=== PATIENT | female | born 1990 | race Caucasian/White ===

== ENCOUNTER 2019-07-19 23:36 | Emergency (ER) | payer BC ==
[~2019-07-19] VITALS: Ht 160 cm; Wt 95.7 kg
--- NOTE | 2019-07-20 00:09 | NUR ---
Dr. Whitaker at bedside for MSE.
[2019-07-20] MEDS ORDERED: SULFAMETH/TRIMETH 800/160 MG TABLET ONE (00:14)
[2019-07-20] MEDS ORDERED: HYDROCODONE/APAP 10-325 MG TABLET ONE (00:14)
[2019-07-20] MEDS ORDERED: HYDROCODONE/APAP 10-325 MG TABLET PO ONE (00:15)
[2019-07-20] MEDS ORDERED: SULFAMETH/TRIMETH 800/160 MG TABLET PO ONE (00:15)
--- NOTE | 2019-07-20 00:23 | NUR ---
Patient discharged to home in stable conditon. Written and verbal after care instructions given. Patient verbalizes understanding of instructions. Pt ambulated out of ER with steady gait, no acute signs of distress, VSS, all belongings taken, to be driven home by family via private vehicle.
[2019-07-20 00:24] VITALS: BP 123/77
== END 2019-07-20 00:25 | disposition home or self-care (01) ==
LOC: ER 23:36
DX: L73.9 Follicular disorder, unspecified (principal); F17.200 Nicotine dependence, unspecified, uncomplicated
CPT/HCPCS: A4663